=== PATIENT | female | born 2000 | race Hispanic/Latino ===

== ENCOUNTER 2023-06-11 17:13 | Emergency (ER) | payer OTHER ==
[~2023-06-11] VITALS: Ht 154.9 cm; Wt 85.0 kg
[2023-06-11] MEDS ORDERED: ONDANSETRON HCl 4 MG/2 ML SDV ONE (17:32)
[2023-06-11 18:22] VITALS: BP 117/72
[2023-06-11] MEDS ORDERED: ONDANSETRON HCl 4 MG/2 ML SDV IV ONE (18:25)
[2023-06-11] MEDS ORDERED: MORPHINE SULFATE 4 MG/ML VIAL IV ONE ×2 (18:25→19:10)
[2023-06-11 18:31] VITALS: BP 109/74
[2023-06-11 18:45] VITALS: BP 109/63
[2023-06-11 19:00] VITALS: BP 104/67
[2023-06-11] MEDS ORDERED: KETOROLAC TROMETHAMINE 30 MG/ML SDV IV ONE (19:10)
[2023-06-11] MEDS ORDERED: PROCHLORPERAZINE EDISYLATE 10 MG/2 ML SDV IV ONE (19:10)
[2023-06-11 19:18] LABS: BASO% 0.1 % (0-3); HEMATOCRIT 41.5 % (37.0-47.0); HEMOGLOBIN 13.6 g/dl (12.0-16.0); IMMATURE GRANULOCYTES 0.2 % (0.0-5.0); LYMPH% 6.5 % (15-41); MEAN CORPUSCULAR HGB 28.5 pG CALC (26.0-32.0); MEAN CORPUSCULAR HGB CONC 32.8 g/dL CAL (32.0-36.0); MONO% 6.9 % (2-13); NEUT# 21.55 thou/uL (2.00-7.15); NEUT% 86.3 % (42-76); RED BLOOD COUNT 4.77 mill/uL (4.20-5.60); RED CELL DISTRI WIDTH 12.6 % (11.5-15.5)
[2023-06-11 19:32] LABS: ALBUMIN 4.7 g/dL (3.2-5.0); ALKALINE PHOSPHATASE 117 u/l (38-126); ANION GAP 13 (6-22 (CALC)); BILIRUBIN, TOTAL 0.4 mg/dL (0.02-1.3); BUN 14 mg/dL (7-17); BUN/CREATININE RATIO 24 (12-20 (CALC)); CARBON DIOXIDE 23 mmol/l (22-30); CHLORIDE 109 mmol/l (95-108); CREATININE 0.6 mg/dL (0.5-1.0); GFR FOR AFR.AMER. > 60 ML/MIN (>=60 (CALC)); GFR OTHER RACES > 60 ML/MIN (>=60 (CALC)); POTASSIUM 3.4 mmol/l (3.5-5.1); SGOT/AST 319 u/l (14-36); SODIUM 142 mmol/l (137-146); TOTAL PROTEIN 7.7 g/dL (6.3-8.2)
[2023-06-11] MEDS ORDERED: TYLENOL # 31 TA1 PO (21:53)
[2023-06-11 22:32] VITALS: BP 104/61
== END 2023-06-11 23:03 | disposition home or self-care (01) | DRG 563 ==
LOC: ED 17:13
PROVIDERS: Family Medicine
DX: S82.832A Other fracture of upper and lower end of left fibula, initial encounter for closed fracture (principal); S63.91XA Sprain of unspecified part of right wrist and hand, initial encounter; S00.81XA Abrasion of other part of head, initial encounter; T14.8XXA Other injury of unspecified body region, initial encounter; V49.50XA Passenger injured in collision with unspecified motor vehicles in traffic accident, initial encounter